=== PATIENT | female | born 1945 | race Caucasian/White ===

== ENCOUNTER 2018-03-21 11:43 | Day surgery (SDC) | payer OTHER ==
[~2018-03-21] VITALS: Ht 152.4 cm; Wt 53.1 kg
[~2018-03-21 11:43] MED LIST: ALEN1TAB48 PO; ATOR40TA16 PO; DICY10CA12 PO; ESTR42.5V VAGINAL; LISI20TA3 PO; METF500T PO
[2018-03-21 12:24] VITALS: BP 169/76; PULSE 56; RESP 18; TEMP 98.1; O2SAT 100
[2018-03-21] MEDS ORDERED: SODIUM CHLOR 0.9% 1000 ML INJ 1,000 ML IV SCH (12:30)
[2018-03-21] MEDS ORDERED: DO NOT ADM ANY ANTICOAGULANT DRUGS PRN (12:30)
[2018-03-21] MEDS ORDERED: ECASA81 PO (12:33)
[2018-03-21] MEDS ORDERED: VITA3000 PO (12:33)
--- NOTE | 2018-03-21 13:23 | PD.VS.PN ---
Pre-operative Note Pre-operative diagnosis: L LE venous insufficiency, without truncal insufficiency Planned procedure: L LE stab phlebectomy Interval History: pt has been feeling well - no troubles; ready for surgery Labs: none needed Orders: NPO Levaquin OCTOR (Augmentin allergy) Post-operative destination: DOCU Operative site marked: Yes Consent: Informed consent has been obtained from Jagruti Mcginnis. I have explained the procedure in detail and discussed the risks, benefits, and potential complications. All questions have been answered. Patient contact information: [phone] Christian Boles MD Mar 21, 2018 13:23
[2018-03-21] MEDS ORDERED: LEVOFLOXACIN 500 MG PREMIX INJ 100 ML IV ONE (14:50)
[2018-03-21] MEDS ORDERED: MIDAZOLAM HCL 5 MG/5 ML VIAL ONE (14:51)
--- NOTE | 2018-03-21 15:22 | HHI.PR ---
cc: Christian Boles MD Immediate Post Op Note Procedure Date: Mar 21, 2018 Pre Op Diagnosis: L LE venous insufficiency Post Op Diagnosis: L LE venous insufficiency Surgeon: Christian Boles Livestock Caretaker(s): none Procedure: L LE stab phlebectomy with excision of varix Findings: successful excision Complications: none Specimen(s) removed: none for pathology Estimated blood loss: 20mL Anesthesia: MAC Drains: None Patient to: Other (DOCU) Patient Condition: Good Implant/Devices: SEE IMPLANT LOG (if applicable) Date/Time of Procedure: SEE SURGICAL CARE RECORD Christian Boles MD Mar 21, 2018 15:22
--- NOTE | 2018-03-21 15:31 | CATHPROC ---
EndoDex HIS Report Study Information Admission Scheduled Start Study Start 03/21/2018 03/21/2018 Mar 21 2018 2:55PM Referring Institution Admit Source Facility Department 1 Other [facility] - [facility] Physician and Clinical Staff Initial Christian Rivera RN, Keshav Barakat,RT(R) Kaylan Arizmendi,RT(R) (BS) Equipment Time Scrap Baler Description Size Mfg Part Number Used/Scraped CATHETER, FR7 CLOSURE FAST [id number] 14:59 BUNDLE-MEDTRONIC 100CM Used RFA 100CM *[id number] 14:59 BUNDLE-MEDTRON[employer] PACK, SERVER ADMINISTRATOR CLOSUREFAST CFP *[id number] Used SHEATH, FR7 CLOSURE FAST [id number] 14:59 BUNDLE-MEDTRONIC 7CM Used MICROINTRODUCER *[id number] KIT, CLOSURE FAST TUMESCENT 14:59 MEDTRONIC TIK-01 *[id number] Used INFILTRATION History: Current Medications Medication Dosage/Unit Route Frequency Last Date/Time Taken Statins (any) LISINOPRIL Glucophage ASA History: Allergies Allergy Reaction amoxicillin Itching clavulanic acid YEAST INFECTION History: Risk Factors Family History of Hypertension Dyslipidemia Previous NE Previous Heart Failure Premature CAD Yes Yes No No No Prior Valve Prior PCI Prior CABG Surgery No No No Cerebrovascular Peripheral Artery Chronic Lung On Dialysis Diabetes Diabetes Therapy Disease Disease Disease No No No No Yes Oral History: Stress Tests Stress or Imaging Studies Performed No History: Other Disease Selection Items HTN History: Other Current Smoker No Labs Hgb (g/dl) 11.60-17.00 Not Drawn Creatinine (mg/dl) 0.50-1.30 Not Drawn CPK-MB (ng/ML) 0.50-3.60 Not Drawn Medication Medication Total Dose (Bolus/Oral) Medication Total Dosage/Unit 1% XYLOCAINE 20 mL FENTANYL 100 mcg VERSED 4 mg Medications (Bolus/Oral) Medication Time Given Dosage/Unit Administered By Reason VERSED 03/21/2018 3:02:00 PM 1 mg Jude Cheema RN 1 mg VERSED given in lab by Jude Cheema RN in Left Antecubital via Peripheral IV. FENTANYL 03/21/2018 3:03:00 PM 50 mcg Jude Cheema RN 50 mcg FENTANYL given in lab by Jude Cheema RN in Left Antecubital via Peripheral IV. VERSED 03/21/2018 3:05:00 PM 1 mg Jude Cheema RN 1 mg VERSED given in lab by Jude Cheema RN in Left Antecubital via Peripheral IV. FENTANYL 03/21/2018 3:09:00 PM 25 mcg Deni FRIEDMAN, Jude 25 mcg FENTANYL given in lab by Jude Cheema RN in Left Antecubital via Peripheral IV. 1% XYLOCAINE 03/21/2018 3:09:31 PM 20 mL Christian Boles 20 mL 1% XYLOCAINE given in lab by Christian Boles via Subcutaneous. left leg VERSED 03/21/2018 3:14:36 PM 1 mg Deni FRIEDMAN, Jude 1 mg VERSED given in lab by Deni FRIEDMAN, Jude in Left Antecubital via Peripheral IV. FENTANYL 03/21/2018 3:15:47 PM 25 mcg Deni FRIEDMAN, Jude 25 mcg FENTANYL given in lab by Jude Cheema RN in Left Antecubital via Peripheral IV. VERSED 03/21/2018 3:29:09 PM 1 mg Deni FRIEDMAN, Jude 1 mg VERSED given in lab by Deni FRIEDMAN, Jude in Left Antecubital via Peripheral IV. Medication (Drip) Medication Time Given Dosage/Unit Concentration/Unit Diluent (ml) Solution IV Solutions 03/21/2018 2:55:00 PM 0 mL (IV) 500 NaCl .9 IV Solutions given in lab by Jude Cheema RN in Left Antecubital via Peripheral IV. Pump/Drip Flow = 20 ml/hr using NaCl .9. LEVAQUIN 03/21/2018 2:56:00 PM 100 mL 100 mL LEVAQUIN given in lab by Jude Cheema RN in Left Antecubital via Peripheral IV. Initial Case Assessment Cardiovascular HR Rhythm NIBP 62 Sinus 152/63 Edema Present Skin color Skin None Normal Warm Neurological State Oriented to time-place- Alert Moves all extremities person Respiration - General Respiration Rate SpO2 (%) O2 (lpm) (B/min) 12 100 2 Final Case Assessment Cardiovascular HR Rhythm NIBP 61 Sinus 108/57 Edema Present Skin color Skin None Normal Warm Dry Neurological State Oriented to time-place- Alert Moves all extremities person Respiration - General Respiration Rate SpO2 (%) O2 (lpm) (B/min) 8 98 2 Chronological Log Time Study Chronological Log 14:52:37 Patient arrived via Bed. 14:55:00 MD arrived. IV Solutions given in lab by Jude Cheema RN in Left Antecubital via Peripheral IV. Pump/Drip F low = 20 ml/hr using NaCl 14:55:00 .9. 14:55:39 Patient Name, D.O.B, / Armband Verified By R.N. 14:55:40 Consent signed by the physician and the patient and verified by the [facility] [employer] staff. 14:55:42 Pre-op and post- op instructions given; patient acknowledges understanding of instructions. 14:55:46 Presedation assessment performed by [facility] [employer] RN. 14:56:00 100 mL LEVAQUIN given in lab by Jude Cheema RN in Left Antecubital via Peripheral IV. Vitals capture started with the following parameters, Patient=Adult, Interval=5 min, Initial Pr kroxqv=310 mmHg, 14:56:41 Deflation Rate=5 mmHg, Cuff placed on Right Ankle Assessment: Initial Case, HR=62 BPM, Rhythm=Sinus, COZF=167/63 mmhg, Edema=None, Color=Normal, Skin = Warm 14:57:00 Neurological: State=Alert, Ox3, NINA Respiration: Resp=12 B/min, DmO2=841 %, O2=2 lpm 14:57:54 AQLC=106/63 mmhg, SpO2=98.0 %, Resp=15 B/min, Pain=0, Anastasiya=10, Carreon=2 15:00:12 Reference ECG taken 15:02:00 1 mg VERSED given in lab by Jude Cheema RN in Left Antecubital via Peripheral IV. 15:02:25 HR=61 bpm, MJCE=911/60 mmhg, VmV3=202.0 %, Resp=20 B/min, Pain=0, Anastasiya=10, Carreon=2 15:03:00 50 mcg FENTANYL given in lab by Jude Cheema RN in Left Antecubital via Peripheral IV. Time Out. Correct patient, correct procedure, correct physician, power injector not loaded wit h contrast with surgical 15:04:56 team present. Time Out Concurred by MD and individual staff in procedure. 15:05:00 1 mg VERSED given in lab by Jude Cheema RN in Left Antecubital via Peripheral IV. 15:05:27 Case Start 15:06:00 Skin Breakdown-none per patient. 15:06:14 A # 20 IV was noted in the Antecubital (left). Grade = 0 15:07:07 History and physical on the chart or being dictated. 15:07:26 HR=59 bpm, FSJV=232/55 mmhg, SpO2=99.0 %, Resp=11 B/min, Pain=0, Anastasiya=10, Carreon=2 15:08:21 Left leg prepped with 2% chlorhexidine, and draped after a 3 min. waiting time. 15:09:00 25 mcg FENTANYL given in lab by Jude Cheema RN in Left Antecubital via Peripheral IV. 15:09:31 20 mL 1% XYLOCAINE given in lab by Christian Boles via Subcutaneous. left leg 15:09:48 Stab phlebectomy in progress. 15:12:19 HR=63 bpm, FXEE=084/51 mmhg, SpO2=99.0 %, Resp=8 B/min, Pain=0, Anastasiya=10, Carreon=2 15:14:36 1 mg VERSED given in lab by Jude Cheema RN in Left Antecubital via Peripheral IV. 15:15:47 25 mcg FENTANYL given in lab by Jude Cheema RN in Left Antecubital via Peripheral IV. 15:17:16 HR=57 bpm, ASBP=809/57 mmhg, SpO2=98.0 %, Resp=5 B/min, Pain=0, Anastasiya=10, Carreon=2 15:17:37 Case End Assessment: Final Case, HR=61 BPM, Rhythm=Sinus, XEWJ=144/57 mmhg, Edema=None, Color=Normal, S kin = Warm, Dry 15:20:33 Neurological: State=Alert, Ox3, NINA Respiration: Resp=8 B/min, SpO2=98 %, O2=2 lpm 15:21:07 Sterile dressing applied to site 15:21:07 No case complications noted. 15:22:15 HR=61 bpm, EJDX=024/54 mmhg, SpO2=98.0 %, Resp=9 B/min, Pain=0, Anastasiya=10, Carreon=2 15:26:55 Vitals capture stopped. 15:29:09 1 mg VERSED given in lab by Jude Cheema RN in Left Antecubital via Peripheral IV. End Study - Contrast Media Used In Study Contrast Total Opened (mL) Total Used (mL) Total Wasted (mL) Omnipaque 0 0 0 End Study - Radiation Exposure Fluoro Time (minutes) 0.0 End Study - Patient Disposition Complications Transferred To Interventional Outcome No Outpatient Bed No attempt made
--- NOTE | 2018-03-21 15:55 | MP ---
cc: Christian Boles MD DATE OF OPERATION: 03/21/2018 PREOPERATIVE DIAGNOSIS: Left lower extremity varicosities. POSTOPERATIVE DIAGNOSIS: Left lower extremity varicosities. PROCEDURE: Excision of left lower extremity varicosities including stab phlebectomy using aid incision. ATTENDING SURGEON: Christian Boles MD DRY ROASTER SURGEON: None. ANESTHESIA: Local with sedation. INDICATION: Ms. Mcginnis is a 72-year-old female who has left lower extremity venous insufficiency. She has no truncal insufficiency as she previously had truncal excision. She is taken to the operating room for a stab phlebectomy and excision of varicosities. DESCRIPTION OF PROCEDURE: Informed consent was obtained from the patient. She was taken to the operating room and placed supine on the operating table. An appropriate timeout was taken to ensure the patient's identity, operative site and planned procedure, and 500 mg of Levaquin was administered prior to skin incision and will be discontinued after a single preoperative dose. Levaquin was chosen because the patient has PENICILLIN DERIVATIVE ALLERGY. Everyone in the room agreed with timeout and we proceeded. Her left leg was prepped and draped and locally anesthetized with 1% lidocaine. A series of stab incisions was made with 11 blade and the varicosity was excised in toto. The wound was managed with pressure for hemostasis and the wounds were closed with 5-0 chromic suture. Sponge and needle counts were correct at the end of the case. I was present, scrubbed, and performed the entire procedure. Christian Boles MD RJApoorva/SINAN , 03:25 PM , 03:53 PM
== END 2018-03-21 17:16 | disposition home or self-care (01) ==
LOC: HDOC 11:43 → HDIC 11:44 → HDOC 17:16
PROVIDERS: ATTEND Surgery
DX: I87.2 Venous insufficiency (chronic) (peripheral) (principal); I73.9 Peripheral vascular disease, unspecified; I10 Essential (primary) hypertension; E11.9 Type 2 diabetes mellitus without complications; Z79.84 Long term (current) use of oral hypoglycemic drugs; Z79.82 Long term (current) use of aspirin
CPT/HCPCS: 37765; 99152; 99153; J1956; J2250; J3010